=== PATIENT | female | born 1960 | race African-American/Black ===

== ENCOUNTER 2016-08-07 03:06 | Emergency (ER) | payer MEDICAID, OTHER ==
[~2016-08-07 03:06] MED LIST: HYDR-3516 PO; MACR100C2 PO; ZOFR4TAB PO
[2016-08-07 03:08] VITALS: BP 166/85; PULSE 70; RESP 16; TEMP 97.5; O2SAT 99
[2016-08-07] MEDS ORDERED: AMLO5TAB2 PO (03:27)
[2016-08-07] MEDS ORDERED: CYAN1TAB24 PO (03:27)
[2016-08-07] MEDS ORDERED: POTA10CA PO (03:27)
[2016-08-07] MEDS ORDERED: CALC1TAB26 PO (03:27)
[2016-08-07] MEDS ORDERED: LISI-519 PO (03:27)
[2016-08-07] MEDS ORDERED: TRIA37.53 PO (03:27)
[2016-08-07] MEDS ORDERED: LOVA40TA PO (03:27)
[2016-08-07 03:30] VITALS: BP 125/66; PULSE 59; RESP 16; O2SAT 98
[2016-08-07] MEDS ORDERED: SODIUM CHLOR 0.9% 1000 ML INJ 1,000 ML IV SCH (03:37)
[2016-08-07] MEDS ORDERED: ONDANSETRON HCL 4 MG/2 ML VIAL IVP ONE (03:45)
[2016-08-07] MEDS ORDERED: SODIUM CHLORIDE 0.9% FLUSH 10 ML FLUSH IV FLUSH PRN (03:45)
--- NOTE | 2016-08-07 03:51 | PD ---
HPI Chief Complaint: GI Complaint Time Seen by Provider: 03:15 Travel History International Travel<30 days: No Contact w/Intl Traveler<30days: No Traveled to known affect area: No History of Present Illness HPI So 56 year-old woman presents to the emergency department complaining of "burning on the inside". She states she's been sick for about 5 days. She initially started getting sick which she began feeling weak and lightheaded. She didn't develop this burning sensation on the inside in her arms legs chest back and belly. She describes increased urination symptoms. She describes nausea and vomiting. She describes decreased bowel movements until today when she took a laxative this morning and had a bowel movement later today. She states her called the ambulance tonight because she was able to sleep because of burning discomfort throughout her body and the retching. She states she's had similar symptoms one time in the past. History Past Medical History Narrative Medical Hypertension Diabetes Hyperlipidemia Tetanus Vaccination: < 5 Years Influenza Vaccination: No : 4 Para: 4 Social History Alcohol Use: Yes (wine occ) Tobacco Use: No Allergies-Medications (Allergen,Severity, Reaction): Coded Allergies: Demerol (Verified Allergy, Unknown, 08/07/16) Oxycodone (Verified Allergy, Unknown, 08/07/16) Reported Meds & Prescriptions Reported Meds & Active Scripts Active Reported Amlodipine (Amlodipine Besylate) 5 Mg Tab 5 Mg PO DAILY Calcium 600+D3 (Calcium Carbonate-Cholecalciferol) 600-800 Mg-Unit Tab 2 Tab PO DAILY B12 (Cyanocobalamin) 1,000 Mcg Tab 500 Mg PO DAILY Potassium Chloride ER (Potassium Chloride) 10 Meq Cap 10 Meq PO BID Lovastatin 40 Mg Tab 40 Mg PO HS Lisinopril 5 Mg Tab 5 Mg PO DAILY Triamterene-Hydrochlorothiazide 37.5-25 Mg Cap 1 Cap PO DAILY Review of Systems Except as stated in HPI: all other systems reviewed are Neg Physical Exam Narrative GENERAL: Well-appearing 56 year-old woman, no acute distress. SKIN: Focused skin assessment warm/dry. HEAD: Atraumatic. Normocephalic. EYES: Pupils equal and round. No scleral icterus. No injection or drainage. ENT: No nasal bleeding or discharge. Mucous membranes pink and moist. NECK: Trachea midline. No JVD. CARDIOVASCULAR: Regular rate and rhythm. No murmur appreciated. RESPIRATORY: No accessory muscle use. Clear to auscultation. Breath sounds equal bilaterally. GASTROINTESTINAL: Abdomen is flat and soft. Mild left-sided tenderness palpation. No rebound or guarding. MUSCULOSKELETAL: No obvious deformities. No edema. Data Data Last Documented VS Vital Signs Date Time Temp Pulse Resp B/P Pulse Ox O2 Delivery O2 Flow Rate FiO2 08/07/16 03:30 59 16 125/66 98 Room Air 08/07/16 03:08 97.5 Orders Complete Blood Count With Diff (08/07/16 03:37) Comprehensive Metabolic Panel (08/07/16 03:37) Lipase (08/07/16 03:37) Urinalysis - C+S If Indicated (08/07/16 03:37) Iv Access Insert/Monitor (08/07/16 03:37) Ecg Monitoring (08/07/16 03:37) Oximetry (08/07/16 03:37) Ondansetron Inj (Zofran Inj) (08/07/16 03:45) Sodium Chlor 0.9% 1000 Ml Inj (Ns 1000 M (08/07/16 03:37) Sodium Chloride 0.9% Flush (Ns Flush) (08/07/16 03:45) Cath For Specimen (08/07/16 03:37) Labs Laboratory Tests Test 08/07/16 08/07/16 03:50 04:38 White Blood Count 2.1 TH/MM3 Red Blood Count 4.12 MIL/MM3 Hemoglobin 11.2 GM/DL Hematocrit 34.0 % Mean Corpuscular Volume 82.4 FL Mean Corpuscular Hemoglobin 27.3 PG Mean Corpuscular Hemoglobin 33.1 % Concent Red Cell Distribution Width 14.3 % Platelet Count 153 TH/MM3 Mean Platelet Volume 9.6 FL Neutrophils (%) (Auto) 32.4 % Lymphocytes (%) (Auto) 47.2 % Monocytes (%) (Auto) 17.7 % Eosinophils (%) (Auto) 2.1 % Basophils (%) (Auto) 0.6 % Neutrophils # (Auto) 0.7 TH/MM3 Lymphocytes # (Auto) 1.0 TH/MM3 Monocytes # (Auto) 0.4 TH/MM3 Eosinophils # (Auto) 0.0 TH/MM3 Basophils # (Auto) 0.0 TH/MM3 CBC Comment AUTO DIFF Differential Total Cells 100 Counted Neutrophils % (Manual) 29 % Band Neutrophils % 11 % Lymphocytes % 50 % Monocytes % 9 % Eosinophils % 1 % Neutrophils # (Manual) 0.8 TH/MM3 Differential Comment FINAL DIFF MANUAL Atypical Lymphocytes % Platelet Estimate NORMAL Platelet Morphology Comment NORMAL Sodium Level 138 MEQ/L Potassium Level 3.7 MEQ/L Chloride Level 101 MEQ/L Carbon Dioxide Level 29.1 MEQ/L Anion Gap 8 MEQ/L Blood Urea Nitrogen 11 MG/DL Creatinine 0.70 MG/DL Estimat Glomerular Filtration 104 ML/MIN Rate Random Glucose 102 MG/DL Calcium Level 9.0 MG/DL Total Bilirubin 0.3 MG/DL Aspartate Amino Transf 19 U/L (AST/SGOT) Alanine Aminotransferase 20 U/L (ALT/SGPT) Alkaline Phosphatase 90 U/L Total Protein 7.2 GM/DL Albumin 3.2 GM/DL Lipase 90 U/L Urine Color LIGHT-YELLOW Urine Turbidity CLEAR Urine pH 6.5 Urine Specific Martha 1.006 Urine Protein NEG mg/dL Urine Glucose (UA) NEG mg/dL Urine Ketones NEG mg/dL Urine Occult Blood NEG Urine Nitrite NEG Urine Bilirubin NEG Urine Urobilinogen LESS THAN 2.0 MG/DL Urine Leukocyte Esterase NEG Urine RBC LESS THAN 1 /hpf Urine WBC 1 /hpf Urine Squamous Epithelial 1 /hpf Cells Microscopic Urinalysis Comment CULT NOT INDICATED MDM Medical Decision Making Medical Screen Exam Complete: Yes Emergency Medical Condition: Yes Interpretation(s) LABS: CBC remarkable for leukopenia, ANC of 700, 11% bands. No blasts or other evidence of leukemia. CMP unremarkable Lipase normal UA unremarkable Differential Diagnosis Weakness, electrolyte abnormalities, vomiting, dehydration, gastroparesis, pancreatitis, UTI, other Narrative Course Medical decision making INITIAL: 56 year-old woman who presents with nondescript symptoms of vomiting in which she describes as burning on the inside throughout. She's not really retching so much and she says spitting into an emesis basin. She looks well. She has some mild left-sided abdominal tenderness. She had a previous CT in April of last year that showed small amount of ascites, possible pancreatitis and mesenteric adenitis. She had a repeat CT scan done in May at [facility]. I reviewed this and it was normal with resolution of pain chronic inflammation and mesenteric adenitis and ascites. She looks well now. Her symptoms are pretty nondescript. She states she has this burning inside when her electrolytes are all. We'll check labs including cell counts and electrolytes, lipase, urine, reassess. Likely supportive treatment, IV fluid hydration. FINAL: Labs reveal leukopenia. Little bit unusual. Given her unusual symptoms in the lab findings I did call and speak with Dr. Irvin, oncology on-call. Given that there is no other immature forms, or other evidence of leukemia, no fever now, okay with outpatient follow-up. Patient is pretty convinced that she has sinusitis. She states that a lot of congestion and facial pressure. She she's had trouble with this before. She is responded well to Augmentin. Think is probably reasonable to treat her for the sinusitis, have her follow-up with oncology, return to emergency department for any worsening symptoms or fever. Diagnosis Primary Impression: Sinusitis Additional Impression: Leukopenia Additional Instructions: Follow-up with your primary physician in the next 2-4 days. Follow-up with Dr. Irvin at the first available appointment. Take Augmentin as prescribed. Use Zofran if needed for nausea or vomiting. Return to the emergency department for any new or worsening symptoms. Med/Other Pt SpecificInfo: Prescription(s) given Scripts Amoxicillin-Clavulanate (Augmentin)875-125 mg [id number] Mg PO BID 7 Days not for use in CrCl <30 ml/min. Prov:Nico Esqueda MD 08/07/16 Ondansetron Odt (Zofran Odt)4 Mg Tab4 Mg SL Q8HR PRN (Nausea/Vomiting) #15 TAB May substitute non-ODT form. Prov:Nico Esqueda MD 08/07/16 Disposition: 01 DISCHARGE HOME Condition: Stable Nico Esqueda MD Aug 07, 2016 03:51
[2016-08-07 04:00] LABS: AUTOMATED NEUTROPHIL # 0.7 TH/MM3 (1.8-7.7); BASOPHIL % 0.6 % (0.0-2.0); EOSINOPHIL % 2.1 % (0.0-4.0); LYMPH % 47.2 % (9.0-44.0); MEAN CELL VOLUME 82.4 FL (80.0-100.0); MEAN CORPUSCULAR HEMOGLOBIN 27.3 PG (27.0-34.0); MEAN CORPUSCULAR HGB CONC 33.1 % (32.0-36.0); MONO % 17.7 % (0.0-8.0); NEUT % 32.4 % (16.0-70.0); PLATELET COUNT 153 TH/MM3 (150-450); RED BLOOD COUNT 4.12 MIL/MM3 (4.00-5.30); RED CELL DISTRIBUTION WIDTH 14.3 % (11.6-17.2); WHITE BLOOD COUNT 2.1 TH/MM3 (4.0-11.0)
[2016-08-07 04:01] LABS: HEMO FLAGS AUTO DIFF
[2016-08-07 04:24] LABS: ALT (GPT) 20 U/L (10-53); ANION GAP 8 MEQ/L (5-15); AST (GOT) 19 U/L (15-37); BICARBONATE 29.1 MEQ/L (21.0-32.0); BLOOD UREA NITROGEN 11 MG/DL (7-18); CHLORIDE 101 MEQ/L (98-107); GLOMERULAR FILTRATION RATE 104 ML/MIN (>89); POTASSIUM 3.7 MEQ/L (3.5-5.1); SODIUM (NA) 138 MEQ/L (136-145)
[2016-08-07 04:27] LABS: ALKALINE PHOSPHATASE 90 U/L (45-117); TOTAL BILIRUBIN ADULT 0.3 MG/DL (0.2-1.0)
[2016-08-07 04:43] LABS: BLOOD, URINE NEG (NEG); GLUCOSE,URINE NEG (NEG); KETONE, URINE NEG (NEG); NITRITE,URINE NEG (NEG); PH, URINE 6.5 (5.0-8.5); SQUAMOUS EPITHELIAL CELL URINE 1 /hpf (0-5); URINE COLOR LIGHT-YELLOW (YELLW/STRAW)
[2016-08-07 04:50] LABS: COMMENT (UR) CULT NOT INDICATED; CULTURE IF INDICATED CULT NOT INDICATED
[2016-08-07 05:34] LABS: BANDS 11 % (0-6); EOSINOPHILS 1 % (0-4); NEUTROPHIL # MANUAL DIFF 0.8 TH/MM3 (1.8-7.7); PLATELET ESTIMATE SMEAR NORMAL (NORMAL); PLATELET MORPHOLOGY NORMAL (NORMAL); POLYS (SEG NEUTROPHILS) 29 % (16-70); SCAN/DIFF FINAL DIFF MANUAL; WBC DIFF SAMPLE 100
[2016-08-07] MEDS ORDERED: ZOFR4TAB3 SL (06:15)
[2016-08-07] MEDS ORDERED: AUGM875T PO (06:15)
[2016-08-07 06:17] VITALS: BP 157/73
[2016-08-07] MEDS ORDERED: AMOXICILLIN/CLAVULANATE K 875 MG TAB PO ONE (06:30)
== END 2016-08-07 06:30 | disposition home or self-care (01) ==
LOC: NEPE 03:06
DX: D72.819 Decreased white blood cell count, unspecified (principal); J32.9 Chronic sinusitis, unspecified; R53.1 Weakness; R42 Dizziness and giddiness; I10 Essential (primary) hypertension; E11.9 Type 2 diabetes mellitus without complications; E78.5 Hyperlipidemia, unspecified
CPT/HCPCS: 80053; 81001; 83690; 85007; 85027; 96361; 96374; 99285; J2405; J7030

== ENCOUNTER 2017-04-26 12:15 | Emergency (ER) | payer OTHER ==
[~2017-04-26 12:15] MED LIST changes: +AMLO5TAB2 PO; +AUGM875T PO; +CALC1TAB26 PO; +CYAN1TAB24 PO; -HYDR-3516 PO; +LISI-519 PO; +LOVA40TA PO; -MACR100C2 PO; +POTA10CA PO; +TRIA37.53 PO; -ZOFR4TAB PO; +ZOFR4TAB3 SL
[2017-04-26 12:17] VITALS: BP 134/72; PULSE 68; RESP 16; TEMP 98.2; O2SAT 97
--- NOTE | 2017-04-26 12:52 | PD ---
HPI Chief Complaint: Pain: Acute or Chronic Time Seen by Provider: 12:40 Travel History International Travel<30 days: No Contact w/Intl Traveler<30days: No Traveled to known affect area: No History of Present Illness HPI Patient comes in complaining of left knee pain ongoing for approximately a week. Patient states that she fell approximately a month ago did not have a pain at that time however about a week ago she began having pain in the anterior aspect of her left knee. Patient describes pain as a burning like sensation without radiation. Pain improves with ice and rest. Pain is worse with walking. Patient feels as though her knee is out of place. Patient has a history of previous knee replacement. Denies any fevers, numbness or tingling, or other known trauma. PFSH Past Medical History Cancer: Yes (Left breast ) Cardiovascular Problems: Yes (HTN) Diabetes: Yes Patient Takes Glucophage: No Hypertension: Yes Tetanus Vaccination: < 5 Years Influenza Vaccination: No ?: Not : 4 Para: 4 Past Surgical History Section: Yes (x4) Joint Replacement: Yes (bilateral hip, left knee replacement ) Social History Alcohol Use: Yes (wine occ) Tobacco Use: No Substance Use: No Allergies-Medications (Allergen,Severity, Reaction): Coded Allergies: meperidine (Unverified Allergy, Unknown, 12/14/16) oxycodone (Unverified Allergy, Unknown, 12/14/16) Reported Meds & Prescriptions Reported Meds & Active Scripts Active Naprosyn (Naproxen) 500 Mg Tab 500 Mg PO Q12HR PRN Augmentin (Amoxicillin-Clavulanate) 875-125 mg Tab 875 Mg PO BID 7 Days not for use in CrCl <30 ml/min. Zofran Odt (Ondansetron Odt) 4 Mg Tab 4 Mg SL Q8HR PRN May substitute non-ODT form. Reported Amlodipine (Amlodipine Besylate) 5 Mg Tab 5 Mg PO DAILY Calcium 600+D3 (Calcium Carbonate-Cholecalciferol) 600-800 Mg-Unit Tab 2 Tab PO DAILY B12 (Cyanocobalamin) 1,000 Mcg Tab 500 Mg PO DAILY Potassium Chloride ER (Potassium Chloride) 10 Meq Cap 10 Meq PO BID Lovastatin 40 Mg Tab 40 Mg PO HS Lisinopril 5 Mg Tab 5 Mg PO DAILY Triamterene-Hydrochlorothiazide 37.5-25 Mg Cap 1 Cap PO DAILY Review of Systems Except as stated in HPI: all other systems reviewed are Neg Physical Exam Narrative GENERAL: Well-developed, overly nourished, in no acute distress, and non-ill appearing. SKIN: Focused skin assessment warm and dry. HEAD: Atraumatic. Normocephalic. EYES: Pupils equal and round. EOMI. No scleral icterus. No injection or drainage. ENT: No nasal bleeding or discharge. Mucous membranes pink and moist. NECK: Trachea midline. Supple. No nuclear rigidity. CARDIOVASCULAR: Dorsal pulses 2+, intact, and equal bilaterally. Capillary refill less than 2 seconds. RESPIRATORY: No accessory muscle use. No respiratory distress. MUSCULOSKELETAL: No obvious deformities. No clubbing. No cyanosis. 1+ edema bilateral lower extremities patient reports is chronic. Full range of motion. Knee: Negative patellar apprehension, varus maneuvers, anterior draw test, and Yahir test. Pulses equal BL distal to injury. Capillary refill less than 2 seconds distal to injury and equal BL. FROM distal to injury and equal BL. Strength distal to injury equal BL. NV intact distal to injury. Dorsal pulses equal BL. Sensation equal BL 1st web space. Patient reports tenderness to palpation over anterior aspect of left knee. There is no crepitus. Mild laxity and equal bilateral knees with valgus maneuvers NEUROLOGICAL: Awake and alert. No obvious cranial nerve deficits. Motor grossly within normal limits. Normal speech. PSYCHIATRIC: Appropriate mood and affect; insight and judgment normal. Data Data Last Documented VS Vital Signs Date Time Temp Pulse Resp B/P (MAP) Pulse Ox O2 Delivery O2 Flow Rate FiO2 04/26/17 12:17 98.2 68 16 134/72 (92) 97 Orders Orders Knee, Complete (4vws) (04/26/17 ) Splint Or Brace Apply/Monitor (04/26/17 14:24) Ed Discharge Order (04/26/17 15:47) [facility] Medical Decision Making Medical Screen Exam Complete: Yes Emergency Medical Condition: Yes Differential Diagnosis Fracture, strain, contusion, bursitis, dislocation, tendinitis, meniscus tear Narrative Course There is no clinical evidence for fracture. There is no clinical evidence to suspect bony injury by exam. Radiographic examination revealed no fracture seen at this time. No obvious ligamental injury or internal derangement is noted at this time. The distal extremity appears neurovascularly intact, without evidence of neurovascular injury nor compartment syndrome. Tendon exam also was intact. The effected limb was splinted. The patient was discharged on pain medication along with splint care instructions and given warnings for vascular compromise. The patient is to follow up with Orthopedics. The patient agrees with plan. Patient in no obvious distress upon re-evaluation. All pertinent Radiology result(s) discussed with patient. Patient was asked if they wanted to speak to my attending, which the patient did not wish to do at this time. Any questions/ concerns in reference to patient diagnosis/condition discussed and clarified prior to patient's discharge. Reinforced sheer importance of close follow up with patient's primary physician or primary care clinic and orthopedics. Instructed patient to return to ED immediately, if symptoms return/worsen. Patient showed understanding of above instructions. Further instructions and recommendations were detailed in discharge paperwork. Patient left without difficulty out of ED at discharge with knee immobilizer. Diagnosis Primary Impression: Left knee pain Qualified Codes: M25.562 - Pain in left knee Referrals: [facility] Orthopedist Patient Instructions: General Instructions, Knee Immobilizer (ED), Knee Pain ( ED) Additional Instructions: Follow-up with your primary care physician and/or orthopedics this week for reevaluation. Take all medication as prescribed. Apply ice to affected area 20 minutes prior seen for pain. Wear knee immobilizer while awake until reevaluated. Use your walker or cane for additional support while walking. Return to the emergency department if symptoms get worse. Med/Other Pt SpecificInfo: Prescription(s) given Scripts Naproxen (Naprosyn) 500 Mg Tab 500 MG PO Q12HR Y for PAIN SCALE 1 TO 10, #14 TAB 0 Refills Prov: Rhoda Meadows MD 04/26/17 Disposition: 01 DISCHARGE HOME Condition: Stable Miguel Tabares Apr 26, 2017 12:52
[2017-04-26] MEDS ORDERED: NAPR500 PO (14:25)
--- NOTE | 2017-04-26 15:46 | RADRPT ---
EXAM DATE/TIME: 04/26/2017 14:05 [facility] COMPARISON: No previous studies available for comparison. INDICATIONS : Fell onto left knee one month ago, continues to have pain and swelling anterior left knee MEDICAL HISTORY : Carcinoma, breast. SURGICAL HISTORY : left knee replacement 2010, bilateral hip replacement ENCOUNTER: Initial ACUITY: 1 month PAIN SCORE: 10/10 LOCATION: Left knee FINDINGS: Four view examination of the left knee demonstrates no evidence of fracture or dislocation. Postsurgi lei changes following joint replacement are noted. The prosthetic components remain well seated and i n satisfactory alignment. CONCLUSION: 1. Status post left knee replacement. 2. No evidence of acute fracture, dislocation or apparent prosthetic loosening. Jono Dunaway MD on April 26, 2017 at 15:43 Board Certified Radiologist. This report was verified electronically.
== END 2017-04-26 16:17 | disposition home or self-care (01) ==
LOC: NEPK 12:15
DX: M25.562 Pain in left knee (principal); I10 Essential (primary) hypertension
CPT/HCPCS: 73564; 99283; L1830; 29505

== ENCOUNTER 2017-08-22 11:34 | Emergency (ER) | payer OTHER ==
[~2017-08-22] VITALS: Ht 162.6 cm; Wt 108.2 kg
[~2017-08-22 11:34] MED LIST changes: +NAPR500 PO
[2017-08-22 11:47] VITALS: BP 112/80; PULSE 74; RESP 18; TEMP 98.8; O2SAT 96
[2017-08-22] MEDS ORDERED: AUGM875T3 PO (13:10)
--- NOTE | 2017-08-22 13:13 | PD ---
HPI Chief Complaint: Cold / Flu Symptoms Time Seen by Provider: 13:02 Travel History International Travel<30 days: No Contact w/Intl Traveler<30days: No Traveled to known affect area: No History of Present Illness HPI 49-year-old female presents to the emergency room for evaluation of sinus pressure, nasal congestion, nonproductive cough, and severe right ear pain. States symptoms have been ongoing for the past week but right ear pain started last night. Ear pain is severe, throbbing in nature. She tried to clean her ear out last night with hydrogen peroxide but it did not help. She has been taking multiple [id number] medications with moderate relief in symptoms. She also took 1000 mg of amoxicillin 2 days ago and yesterday. She has not taken anything today. Patient has history of hypertension. PFSH Past Medical History Cancer: Yes (Left breast ) Cardiovascular Problems: Yes (HTN, cholesterol) Diabetes: Yes Hypertension: Yes : 4 Para: 4 Past Surgical History Section: Yes (x4) Joint Replacement: Yes (bilateral hip, left knee replacement ) Social History Alcohol Use: Yes (wine occ) Tobacco Use: No Substance Use: No Allergies-Medications (Allergen,Severity, Reaction): Coded Allergies: meperidine (Unverified Allergy, Unknown, 12/14/16) oxycodone (Unverified Allergy, Unknown, 12/14/16) Reported Meds & Prescriptions Reported Meds & Active Scripts Active Augmentin (Amoxicillin-Clavulanate) 875-125 Mg Tab 1 Tab PO BID Naprosyn (Naproxen) 500 Mg Tab 500 Mg PO Q12HR PRN Augmentin (Amoxicillin-Clavulanate) 875-125 mg Tab 875 Mg PO BID 7 Days not for use in CrCl <30 ml/min. Zofran Odt (Ondansetron Odt) 4 Mg Tab 4 Mg SL Q8HR PRN May substitute non-ODT form. Reported Amlodipine (Amlodipine Besylate) 5 Mg Tab 5 Mg PO DAILY Calcium 600+D3 (Calcium Carbonate-Cholecalciferol) 600-800 Mg-Unit Tab 2 Tab PO DAILY B12 (Cyanocobalamin) 1,000 Mcg Tab 500 Mg PO DAILY Potassium Chloride ER (Potassium Chloride) 10 Meq Cap 10 Meq PO BID Lovastatin 40 Mg Tab 40 Mg PO HS Lisinopril 5 Mg Tab 5 Mg PO DAILY Triamterene-Hydrochlorothiazide 37.5-25 Mg Cap 1 Cap PO DAILY Review of Systems Except as stated in HPI: all other systems reviewed are Neg Physical Exam Narrative GENERAL: Well-nourished, well-developed female no acute distress. Afebrile. Ambulatory. SKIN: Focused skin assessment warm/dry. HEAD: Normocephalic. EYES: No scleral icterus. No injection or drainage. ENT: Mucosa pink and moist. Moderate erythema without edema or exudates. No uvular edema. No uvular, palatal, or tonsillar deviation. Airway patent. Nasal turbinates appear normal without nasal blood, purulent drainage or septal hematoma. EARS: Bilateral pinnae and external canals appear within normal limits. Left tympanic membrane without erythema, dullness or perforation. Right tympanic membrane is extremely erythematous. There is dullness and obvious effusion but no perforation. There is mild bloody drainage in the ear canal. NECK: Supple, trachea midline. No JVD or lymphadenopathy. CARDIOVASCULAR: Regular rate and rhythm without murmurs, gallops, or rubs. RESPIRATORY: Breath sounds equal bilaterally. No accessory muscle use. No crackles, rales, wheezes, or rhonchi. Data Data Last Documented VS Vital Signs Date Time Temp Pulse Resp B/P (MAP) Pulse Ox O2 Delivery O2 Flow Rate FiO2 08/22/17 11:47 98.8 74 18 112/80 (91) 96 Orders Orders Ed Discharge Order (08/22/17 13:13) MDM Medical Decision Making Medical Screen Exam Complete: Yes Emergency Medical Condition: Yes Medical Record Reviewed: Yes Differential Diagnosis Otitis media, strep, sinusitis, pneumonia, bronchitis Narrative Course 57-year-old female presents to the emergency room for evaluation of sinus pain for the past week. She reports subjective fevers. She developed significant right ear pain yesterday. Physical exam reveals obvious effusion of the right ear. No perforation. There is blood in the canal which I suspect is from trauma has patient tried to clean her ear out last night. She will be treated for otitis media and sinusitis with Augmentin. Told to follow-up with a primary care physician or return for worsening symptoms. She understands and agrees to plan. Diagnosis Primary Impression: Right otitis media with effusion Additional Impression: Sinusitis Qualified Codes: J01.10 - Acute frontal sinusitis, unspecified Referrals: Primary Care Physician Additional Instructions: Rest and drink plenty of fluids. Augmentin as directed, until gone. Take Tylenol or ibuprofen with food as directed, as needed for pain. Follow-up with a primary care physician. Return to the emergency room for worsening symptoms. Med/Other Pt SpecificInfo: Prescription(s) given Scripts Amoxicillin-Clavulanate (Augmentin) 875-125 Mg Tab 1 TAB PO BID for Infection, #20 TAB 0 Refills Prov: Brandon Simon MD 08/22/17 Disposition: 01 DISCHARGE HOME Condition: Stable Nicky Gomez Aug 22, 2017 13:13
== END 2017-08-22 13:30 | disposition home or self-care (01) ==
LOC: NEPK 11:34
DX: H65.91 Unspecified nonsuppurative otitis media, right ear (principal); J01.10 Acute frontal sinusitis, unspecified; R05 Cough; I10 Essential (primary) hypertension; E11.9 Type 2 diabetes mellitus without complications; E78.00 Pure hypercholesterolemia, unspecified; Z85.3 Personal history of malignant neoplasm of breast
CPT/HCPCS: 99283